=== PATIENT | male | born 1955 | race Caucasian/White ===

== ENCOUNTER 2017-10-25 19:37 | Observation (INO) | payer OTHER ==
[~2017-10-25] VITALS: Ht 180.3 cm; Wt 111.2 kg
[~2017-10-25 19:37] MED LIST: ACTIGALL300 MG PO; ALEVE220 MG PO; AMLODIPINE BESYL5 MG PO; AUGMENTIN875 MG PO; BENADRYL A12.5 MG/5 PO; CARDURA8 MG PO; CIALIS2.5 MG PO; EXCEDRIN MIGRA1 EAC3 PO; FLORASTOR250 MG PO; FUROSEMIDE40 MG PO; LOTENSIN10 MG PO; MEN'S MULTI-VI1 EACH PO; NYQUIL D COLD295 ML PO; PREDNISONE50 MG PO; PROAIR HFA8.5 GM IH; PROSCAR5 MG PO; PROVENTIL,2.5 MG/3 M IH; ZOLPIDEM TARTRAT5 MG PO; ZYRTEC10 M3 PO
[2017-10-25 20:01] LABS: BASOPHIL (%) 0.5 % (0-1); EOSINOPHIL (%) 2.7 % (0-5); EOSINOPHIL COUNT 0.2 K/uL (0-0.3); HEMATOCRIT 43.9 % (38.0-50.0); HEMOGLOBIN 15.3 G/DL (12.5-16.6); IMMATURE GRANULOCYTE (%) 0.4 % (0.0-0.7); LYMPHOCYTE (%) 24.4 % (15-42); LYMPHOCYTE COUNT 1.8 K/uL (1.0-2.8); MCH 33.1 PG (29.0-34.0); MCHC 34.9 G/DL (30.0-36.0); MONOCYTE (%) 7.2 % (3-12); MONOCYTE COUNT 0.5 K/uL (0-0.8); NEUTROPHIL (%) 64.8 % (45-76); NEUTROPHIL COUNT 4.8 K/uL (1.8-6.4); PLATELET COUNT 217 K/uL (156-360); RBC DIS.WIDTH-CV 13.2 % (11.8-14.6); RBC DIS.WIDTH-SD 46.2 % (39-53); RED BLOOD COUNT 4.62 M/uL (4.00-5.50); WHITE BLOOD COUNT 7.4 K/uL (4.1-10.2)
[2017-10-25 20:10] LABS: AMYLASE 46 IU/L (1-118); CHLORIDE 108 mEq/L (99-109); POTASSIUM 3.9 mEq/L (3.7-5.4); PTT 27.8 SEC (25-37); SODIUM 140 mEq/L (136-147)
[2017-10-25 20:12] LABS: GLUCOSE 104 mg/dL (70-99)
[2017-10-25 20:15] LABS: SERUM ETHYL ALCOHOL 97 mg/dL
[2017-10-25 20:16] LABS: CREATININE 1.1 mg/dL (0.6-1.3); GFR ESTIMATE (CALCULATED) > 59 mL/min/ (58.99-99999)
[2017-10-25 20:17] LABS: UREA NITROGEN (BUN) 20 mg/dL (9-23)
[2017-10-25 20:19] LABS: LIPASE 11 U/L (1.0-51.0)
[2017-10-25 20:22] LABS: TROP-I INTERPRETATION NEGATIVE; TROPONIN-I < 0.01 ng/mL (0.0-0.30)
[2017-10-25 22:29] LABS: APPEARANCE CLEAR ((CLEAR)); BILIRUBIN NEGATIVE; BLOOD NEGATIVE; COLOR YELLOW ((YELLOW)); GLUCOSE (STRIP) NEGATIVE; KETONES NEGATIVE; LEUKOCYTES NEGATIVE; NITRITE NEGATIVE; PROTEIN (STRIP) NEGATIVE; UCUL ADDED? NO; UROBILINOGEN 0.2 MG/DL (0.2-1.0)
[2017-10-25 22:37] LABS: AMPHETAMINE NEGATIVE (500 ng/mL); BARBITURATES NEGATIVE (200 ng/mL); BENZODIAZEPINES NEGATIVE (150 ng/mL); BUPRENORPHINE NEGATIVE (10 ng/mL); COCAINE NEGATIVE (150 ng/mL); METHADONE NEGATIVE (200 ng/mL); METHAMPHETAMINE NEGATIVE (500 ng/mL); OPIATES (MORPHINE) NEGATIVE (100 ng/mL); OXYCODONE NEGATIVE (100 ng/mL); PHENCYCLIDINE NEGATIVE (25 ng/mL); PROPOXYPHENE NEGATIVE (300 ng/mL); THC CANNABINOIDS NEGATIVE (50 ng/mL); TRICYCLIC ANTIDEPRESSANTS NEGATIVE (300 ng/mL)
[2017-10-25 22:41] LABS: SPECIFIC GRAVITY 1.054 (1.000-1.030)
[2017-10-25] MEDS ORDERED: ESZOPICLONE2 MG PO (23:49)
[2017-10-25] MEDS ORDERED: ADVAIR 500/501 DISK IH (23:50)
[2017-10-25] MEDS ORDERED: CONTRAVE ER 8-1 EACH PO (23:51)
[2017-10-25] MEDS ORDERED: DOXAZOSIN MESYLA8 MG PO (23:51)
[2017-10-25] MEDS ORDERED: FINASTERIDE5 MG PO (23:51)
[2017-10-25] MEDS ORDERED: METAMUCIL0.4 GM PO (23:52)
[2017-10-26 00:28] VITALS: BP 128/82
[2017-10-26 01:31] LABS: SERUM ETHYL ALCOHOL < 10 mg/dL
[2017-10-26 02:40] LABS: HDL CHOLESTEROL 61 MG/DL (Desirable>=40); NON-HDL CHOLESTEROL 112 mg/dL (Desirable<160); TOTAL CHOLESTEROL 173 mg/dL (Desirable<200); TRIGLYCERIDES 409 MG/DL (Normal: <150)
[2017-10-26 07:27] VITALS: BP 141/87
[2017-10-26 09:11] LABS: Estimated Average Glucose 117 mg/dL (70-123); HEMOGLOBIN A1c (GLYCOHEMOGLOB) 5.7 % HGB (Below 5.7)
[2017-10-26 12:03] VITALS: BP 147/91
[2017-10-26 15:32] VITALS: BP 136/88
[2017-10-26 20:18] VITALS: BP 135/85
[2017-10-26 23:35] VITALS: BP 114/67
[2017-10-27 03:26] VITALS: BP 132/84
[2017-10-27 08:02] VITALS: BP 139/82
[2017-10-27 12:17] VITALS: BP 151/73
[2017-10-27 12:26] VITALS: BP 150/68
[2017-10-27] MEDS ORDERED: ASPIR-LOW81 MG PO (12:29)
[2017-10-27] MEDS ORDERED: PRIMIDONE50 MG PO (12:29)
[2017-10-27] MEDS ORDERED: ATORVASTATIN CA40 MG PO (12:29)
== END 2017-10-27 17:10 | disposition home or self-care (01) ==
LOC: EME → EDBD 19:37 → EME 19:37 → 5WEST 22:58 → EDOF 22:58 → ENRESERV 23:00 → 5WEST 10-26 00:24
PROVIDERS: Hospitalist
DX: R41.0 Disorientation, unspecified (principal); R25.8 Other abnormal involuntary movements; R53.1 Weakness; I10 Essential (primary) hypertension; G25.0 Essential tremor; J45.909 Unspecified asthma, uncomplicated; E78.5 Hyperlipidemia, unspecified
CPT/HCPCS: 70450; 70496; 70498; 70551; 80048; 80061; 80306 90; 81003; 82150; 83036; 83690; 84484; 85025; 85610; 85730; 86850; 86900; 86901; 94640; 94640 76; 99202; 99281; 99285; G0378; G0480; J1650; J2270